=== PATIENT | male | born 1980 | race Caucasian/White ===

== ENCOUNTER 2018-01-11 15:57 | Emergency (ER) | payer OTHER ==
[2018-01-11] MEDS ORDERED: IPRATROPIUM/ALBUTEROL 3 ML DEYVIAL IH ONE (16:08)
--- NOTE | 2018-01-11 16:14 | EDPHY ---
H & P Stated Complaint: 1 hour ago started having a feeling of throat irritation/ swelling Source: Patient Exam Limitations: No limitations - Personal History Current Tetanus Diphtheria and Acellular Pertussis (TDAP): Yes - Medical/Surgical History Hx Asthma: No Hx Chronic Respiratory Disease: No Hx Diabetes: No Hx Cardiac Disease: No Hx Renal Disease: No Hx Cirrhosis: No Hx Alcoholism: No Hx HIV/AIDS: No Hx Splenectomy or Spleen Trauma: No Other PMH: seasonal allergies, tonsilectomy - Social History Smoking Status: Never smoked Time Seen by Provider: 01/11/18 16:12 HPI/ROS: HPI: This is a 37-year-old male who presents with Chief Complaint: 1 hour ago started having a feeling of throat irritation/ swelling Location: Chest Quality: Wheezing Duration: 1 hr prior to arrival Signs and Symptoms: no shortness of breath at rest, no shortness of breath on exertion, + unproductive cough, no chest pain, no palpitations, no lower extremity edema, + wheezing, no orthopnea, no paroxysmal nocturnal dyspnea, no fever, no injury/trauma, no hemoptysis, no carpal pedal spasms Timing: Acute Severity: Afft-er-hojjpchi Context: Patient reports that he works at [employer] presents with complaints of sudden onset of throat irritation and swelling accompanied by wheezing and dry coughing after exposure to chemicals and plants while at work. Patient reports that this happens to him approximately 1 time per month. Uses his coworkers albuterol inhaler with resolution of symptoms. Denies swelling of tongue/swelling of lips/shortness of breath/chest pain. does not smoke tobacco. Does not smoke marijuana. No history of lung disease. Denies any rashes. Modifying Factors: None Comment: ROS: see HPI Constitutional: No fever, no chills, no weight loss Eyes: No blurred vision Respiratory: No shortness of breath, + cough Cardiovascular: No chest pain, no palpitations, no lower extremity edema Gastrointestinal: No nausea, no vomiting, no diarrhea Genitourinary: No dysuria Extremities: No myalgias Neurologic: No weakness, no numbness Skin: No rashes Hematologic: No bruising, no bleeding MEDICAL/SURGICAL/SOCIAL HISTORY: Medical history: seasonal allergies Surgical history: Tonsillectomy Social history: Works in a [employer] CONSTITUTIONAL: Extremely pleasant adult white male, awake and alert, no obvious distress HEENT: Atraumatic and normocephalic, PERRL, EOMI. Nares patent; no rhinorrhea; no nasal mucosal edema. Tympanic membranes clear. Oropharynx clear, no postpharyngeal edema, uvula midline, no exudate and moist pink mucosa. Airway patent. No lymphadenopathy. No meningismus. Cardiovascular: Normal S1/S2, regular rate, regular rhythm, without murmur rub or gallop. PULMONARY/CHEST: Symmetrical and nontender. Clear to auscultation bilaterally. Good air movement. No accessory muscle usage. ABDOMEN: Soft, nondistended, nontender, no rebound, no guarding, no peritoneal signs, no masses or organomegaly. No CVAT. EXTREMITIES: 2/2 pulses, strength 5/5, no deformities, no clubbing, no cyanosis or edema. NEUROLOGICAL: no focal neuro deficits. GCS 15. SKIN: Warm and dry, no erythema. no rash. Good capillary refill. (Maureen Lechuga) Constitutional: Initial Vital Signs Temperature (C) 37.2 C 01/11/18 16:00 Heart Rate 67 01/11/18 16:00 Respiratory Rate 18 01/11/18 16:00 Blood Pressure 136/69 H 01/11/18 16:00 O2 Sat (%) 91 L 01/11/18 16:00 O2 Delivery Mode Room Air Allergies/Adverse Reactions: No Known Allergies Allergy (Unverified 01/11/18 16:00) Home Medications: Medication Instructions Recorded Albuterol Sulfate [Proair Hfa] 1 - 2 puffs IH Q4 PRN #1 hfa.aer.ad 01/11/18 Zyrtec 01/11/18 predniSONE [predniSONE TAPER] 10 mg PO DAILY 6 Days ea 01/11/18 Medical Decision Making ED Course/Re-evaluation: Vital signs reviewed and stable. O2 sats 91% on room air Given DuoNeb upon arrival with improved aeration and oxygenation. Given prednisone 60 mg. Afebrile. No systemic signs. No concerns for infectious process. Wells criteria is low for PE Given prescription for prednisone taper and albuterol inhaler, advised to wear mask while at work, establish care at [facility] Vital signs improved greatly at discharge. Hypoxia resolved. This patient was seen under the supervision of my secondary supervising physician. I evaluated care for this patient independently. Discussed this patient with Dr. Gaspar who did not see the patient. (Maureen Lechuga) I did not see this patient while he was in the emergency department. However his care was discussed with the PA while the patient was in the department. I agree with treatment plan and management (Olman Gaspar) Differential Diagnosis: Shortness of breath including but not limited to pulmonary infectious process, asthma, pulmonary embolus and pneumonitis. (Maureen Lechuga) - Data Points Medications Given: Discontinued Medications Albuterol/Ipratropium (Duoneb) 3 ml IH EDNOW ONE Stop: 01/11/18 16:09 Last Admin: 01/11/18 16:11 Dose: 3 ml Prednisone (Prednisone) 60 mg PO EDNOW ONE Stop: 01/11/18 16:17 Last Admin: 01/11/18 16:19 Dose: 60 mg Departure - Departure Disposition: Home, Routine, Self-Care Clinical Impression: Chemical pneumonitis Condition: Good Instructions: Pneumonitis (ED) Additional Instructions: Wear mask while at work. Take 6 day prednisone taper until complete. Use albuterol inhaler every 4 hr as needed for shortness of breath, wheezing. Return to the ER immediately if you experience fevers/chills, shortness of breath, abdominal pain, inability to tolerate oral intake, or any other symptoms that concern you. Referrals: [facility],. [Clinic] - 5-7 days, if not improved Prescriptions: Albuterol Sulfate [Proair Hfa] 1 - 2 puffs IH Q4 PRN #1 hfa.aer.ad PRN Reason: Short Of Breath/Dyspnea predniSONE [predniSONE TAPER] 10 mg PO DAILY 6 Days ea
[2018-01-11] MEDS ORDERED: predniSONE 20 MG TAB PO ONE (16:16)
[2018-01-11 16:22] VITALS: BP 132/81
== END 2018-01-11 16:49 | disposition home or self-care (01) ==
DX: T65.891A Toxic effect of other specified substances, accidental (unintentional), initial encounter (principal); J68.0 Bronchitis and pneumonitis due to chemicals, gases, fumes and vapors
CPT/HCPCS: J7512